=== PATIENT | male | born 1970 | race Caucasian/White ===

== ENCOUNTER 2017-04-09 14:48 | Emergency (ER) | payer SELFPAY ==
[~2017-04-09] VITALS: Ht 167.6 cm; Wt 101.0 kg
[2017-04-09 15:36] VITALS: BP 158/81
== END 2017-04-09 19:57 | disposition left against medical advice (07) ==
LOC: ER 14:48
DX: K64.4 Residual hemorrhoidal skin tags (principal); Z53.21 Procedure and treatment not carried out due to patient leaving prior to being seen by health care provider